=== PATIENT | female | born 1980 | race Two or more races ===

== ENCOUNTER 2016-03-16 17:27 | Emergency (ER) | payer SELFPAY ==
[~2016-03-16] VITALS: Ht 162.6 cm; Wt 95.7 kg
[2016-03-16 18:38] LABS: APPEARANCE,URINE CLEAR; KETONES,URINE NEGATIVE (NEGATIVE); LEUKOCYTE ESTERASE ,URINE 1+ (NEGATIVE); NITRITE,URINE NEGATIVE (NEGATIVE); PH,URINE 7 (4.5-8.0); PROTEIN,URINE NEGATIVE (NEGATIVE); UROBILINOGEN,URINE NORMAL MG/DL (0.0-1.0)
[2016-03-16 18:46] LABS: BACTERIA,URINE FEW /HPF; RBC,URINE 0-2 /HPF (0 - 2); SQUAMOUS EPITHELIAL CELL,UR FEW /LPF (NONE/OCC); WBC,URINE 0-2 /HPF (0 - 2)
[2016-03-16 18:56] VITALS: BP 138/91
--- NOTE | 2016-03-20 04:24 | Emergency Room Report ---
History of Present Illness General Chief Complaint: Medical Clearance Source: Patient Present Illness HPI Patient is a 35-year-old female brought in for medical clearance for detention. The patient was noted to have prior history of hypertension but had been off her medications. Patient had also been off of her psychiatric medications. Patient had prior history of psychosis. She denied any current complaints. Allergies: Coded Allergies: LATEX (Verified Allergy, Unknown, 03/16/16) OLANZAPINE (Verified Allergy, Unknown, 03/16/16) Uncoded Allergies: CYPREXA (Allergy, Unknown, 03/16/16) Patient History Past Medical History: see triage record Last Menstrual Period: 01/2016 Now: No : 0 Para: 0 Reviewed Nursing Documentation: PMH: Agreed, PSxH: Agreed Nursing Documentation-PMH Past Medical History: No History, Except For Hx Hypertension: Yes History Of Psychiatric Problem: Yes - Schizophrenia Review of Systems All Other Systems: negative except mentioned in HPI Physical Exam Vital Signs Date Time Temp Pulse Resp B/P Pulse Ox O2 Delivery O2 Flow Rate FiO2 03/16/16 17:46 99.1 82 14 138/91 99 Room Air General Appearance: well appearing, no apparent distress, alert, GCS 15 Head: normocephalic, atraumatic ENT: hearing grossly normal, normal voice Neck: full range of motion, supple Respiratory: no respiratory distress, speaking full sentences Musculoskeletal: no calf tenderness Neurologic: normal gait Psychiatric: mood/affect normal Skin: no rash Medical Decision Making Diagnostic Impression: Primary Impression: Medical clearance for incarceration ER Course Patient presented for medical clearance. Differential diagnosis included was not limited to hypertension, , psychosis among others. The patient was medically cleared for detention. The patient had a benign exam. test was negative. Patient was advised to return if she began having increased blood pressure or weakness or other concerns. Labs Test 03/16/16 18:00 Urine Color Pale yellow Urine Appearance Clear Urine pH 7 (4.5-8.0) Urine Specific [place] 1.010 (1.005-1.035) Urine Protein Negative (NEGATIVE) Urine Glucose (UA) Negative (NEGATIVE) Urine Ketones Negative (NEGATIVE) Urine Occult Blood Negative (NEGATIVE) Urine Nitrite Negative (NEGATIVE) Urine Bilirubin Negative (NEGATIVE) Urine Urobilinogen Normal MG/DL (0.0-1.0) Urine Leukocyte Esterase 1+ (NEGATIVE) Urine RBC 0-2 /HPF (0 - 2) Urine WBC 0-2 /HPF (0 - 2) Urine Squamous Epithelial Cells Few /LPF (NONE/OCC) Urine Bacteria Few /HPF (NONE) Urine HCG, Qualitative Negative Last Vital Signs Date Time Temp Pulse Resp B/P Pulse Ox O2 Delivery O2 Flow Rate FiO2 03/16/16 18:56 82 14 138/91 99 Room Air 03/16/16 18:56 99.1 Status: improved Disposition: HOME, SELF-CARE Condition: Stable Referrals: NOT CHOSEN IPA/MD,REFERRING (PCP) Departure Forms: Senior Living Clearance Patient Instructions: Psychosis José Miguel Perales Mar 20, 2016 04:24
== END 2016-03-16 18:56 | disposition home or self-care (01) ==
LOC: EMR 18:20
DX: I10 Essential (primary) hypertension (principal); F20.9 Schizophrenia, unspecified; Z91.14 Patient's other noncompliance with medication regimen; Z88.8 Allergy status to other drugs, medicaments and biological substances; Z91.040 Latex allergy status
CPT/HCPCS: 81003; 81025; 99282